=== PATIENT | male | born 1960 | race Caucasian/White ===

== ENCOUNTER 2017-06-26 12:19 | Emergency (ER) | payer OTHER ==
[~2017-06-26] VITALS: Wt 110.7 kg
[~2017-06-26 12:19] MED LIST: CARB100T2 PO; HALO5TAB23 PO; SERT50TA PO
--- NOTE | 2017-06-26 13:37 | RADRPT ---
PROCEDURE: CT Brain without contrast. CLINICAL INDICATION: Trauma. Fall striking back of head. TECHNIQUE: A CT of the brain was performed on a [facility] [employer] CT scanner [employer] a low dose technique with axial imaging from the skull base through the vertex without IV contras t. Multiplanar reformatted images were made. Images were reviewed on a PACS workstation. The CTDI vol is 44.5 mGy and the DLP is 810.25 mGycm. One or more of the following dose reduction techniques were used: - Automated exposure control. - Adjustment of the mA and/or kV according to patient size. Use of iterative reconstruction technique. COMPARISON: CT scan of the brain February 21, 2016 12:38 p.m. FINDINGS: The fourth ventricle is normal in size. The third and lateral ventricles are normal in size and con figuration. The brain parenchyma is normal with no intracranial mass or hemorrhage identified. There is a scalp hematoma size and with a laceration adjacent to the convexity of the dorsal right pariet al bone. The visible portions of the globes and extraocular muscles are normal. The paranasal sinuses are cl ear. The mastoid air cells and internal auditory canals are normal. The bony calvarium is intact. IMPRESSION: 1. There is a scalp hematoma over the dorsal convexity of the right frontal bone. 2. No skull fracture or intracranial hemorrhage is identified. The overall appearance of the brain is unchanged compared to the prior CT scan of 02/21/2016. RPTAT:AAJJ Physician Antonio Date Time Electronically viewed and signed by Physician Antonio on 06/26/2017 13:36 TALON/
[2017-06-26 14:16] VITALS: BP 145/87; PULSE 72; RESP 18; TEMP 98.7
[2017-06-26] MEDS ORDERED: LAMO200T PO (14:20)
--- NOTE | 2017-06-26 14:24 | ERD ---
ER Documentation Chief Complaint Chief Complaint head to back of head, dizziness s/p possible sz; hx sz HPI This is a 56-year-old male with a long-standing seizure disorder history. The patient states he was in the shower and felt his typical preceding aura that he has before a seizure and then the next thing he knows he wakes up on his living room couch. The patient states he fell backwards in the shower hit the back of his head sustaining a laceration. Said he has no headache no neck pain no shoulder pain back pain extremity pain chest pain abdominal pain vomiting or dizziness. The patient takes carbamazepine and lamotrigine for seizures lamotrigine dose is 150 mg twice daily ROS All systems reviewed and are negative except as per history of present illness. Medications Home Meds Active Scripts Lamotrigine* (Lamotrigine*) 200 Mg Tablet, 200 MG PO BID, #60 TAB Prov:QUYNH CARLSON DO 06/26/17 Reported Medications Carbamazepine* (Carbamazepine*) 100 Mg Tab.chew, 200 MG PO QID, #60 TAB.CHEW 02/21/16 Haloperidol* (Haldol*) 5 Mg Tab, 5 MG PO DAILY, TAB 10/21/14 Sertraline Hcl* (Zoloft*) 50 Mg Tablet, 50 MG PO DAILY, TAB 10/21/14 Allergies Allergies: Coded Allergies: phenytoin (Verified Allergy, Unknown, RASH, 02/23/16) PMhx/Soc History of Surgery: No Anesthesia Reaction: No Hx Neurological Disorder: Yes (seizure on medications) Hx Respiratory Disorders: No Hx Cardiac Disorders: No Hx Psychiatric Problems: Yes (depression on medications) Hx Miscellaneous Medical Probl: No Hx Alcohol Use: No Hx Substance Use: No Hx Tobacco Use: No FmHx Family History: No coronary disease Physical Exam Vitals Vital Signs Date Time Temp Pulse Resp B/P Pulse Ox O2 Delivery O2 Flow Rate FiO2 06/26/17 14:16 98.7 72 18 145/87 96 Room Air 06/26/17 13:11 98.7 66 22 134/104 96 Room Air 06/26/17 12:23 98.7 72 20 167/83 96 Physical Exam Const: Well-developed, well-nourished Head: Right posterior scalp with laceration see laceration repair below , normocephalic Eyes: Normal Conjunctiva, PERRLA, EOMI, normal sclera, no nystagmus ENT: Normal External Ears, Nose and Mouth, moist mucus membranes. Neck: Full range of motion. No meningismus, no lymphadenopathy. Resp: Clear to auscultation bilaterally, no wheezing, rhonchi, rales Cardio: Regular rate and rhythm, no murmurs, S1 S2 present Abd: Soft, non tender x 4, non distended. Normal bowel sounds, no guarding or rebound, no pulsitile abdominal masses or bruits Skin: No petechiae or rashes, no ecchymosis , no maculopapular rash Back: No midline or flank tenderness Ext: No cyanosis, or edema, FROM x 4, normal inspection, neurovascularly intact x 4 Neur: Awake and alert, STR 5/5 x 4, sensation intact x 4, no focal findings, cerebellum intact Psych: Normal Mood and Affect Results 24 hrs Laboratory Tests Test 06/26/17 13:00 Carbamazepine (Tegretol) Level 11.4ug/ml Procedures/MDM PROCEDURE: CT Brain without contrast. CLINICAL INDICATION: Trauma. Fall striking back of head. TECHNIQUE: A CT of the brain was performed on a [employer] CT scanner utilizing a low dose technique with axial imaging from the skull base through the vertex without IV contrast. Multiplanar reformatted images were made. Images were reviewed on a PACS workstation. The CTDIvol is 44.5 mGy and the DLP is 810.25 mGycm. One or more of the following dose reduction techniques were used: - Automated exposure control. - Adjustment of the mA and/or kV according to patient size. Use of iterative reconstruction technique. COMPARISON: CT scan of the brain February 21, 2016 12:38 p.m. FINDINGS: The fourth ventricle is normal in size. The third and lateral ventricles are normal in size and configuration. The brain parenchyma is normal with no intracranial mass or hemorrhage identified. There is a scalp hematoma size and with a laceration adjacent to the convexity of the dorsal right parietal bone. The visible portions of the globes and extraocular muscles are normal. The paranasal sinuses are clear. The mastoid air cells and internal auditory canals are normal. The bony calvarium is intact. IMPRESSION: 1. There is a scalp hematoma over the dorsal convexity of the right frontal bone. 2. No skull fracture or intracranial hemorrhage is identified. The overall appearance of the brain is unchanged compared to the prior CT scan of 2015. RPTAT:AAJJ Physician Antonio Date Time Electronically viewed and signed by Chuck Taylor Physician on 06/26/2017 13:36 JM/ CC: QUYNH CARLSON DO Laceration Repair by me: Anesthesia: 1 Location: Scalp Tendon/Joint/Nerves: No injury Foreign body: None detected after copious irrigation and exploration Technique: Simple Interrupted mya 4 Complexity: No subcutaneous sutures/mucosal repair/ edge excision Post Closure Length: 6 cm Patient's bleeding was easily controlled in the department and there is no indication of anemia. No evidence of compartment syndrome, neurologic injury, vascular injury, open joint, tendon laceration, or foreign body. Patient is appropriate for outpatient follow up. 48 hour wound check. Scar minimization instructions given. We will increase lamotrigine to 200 twice daily from 150 Departure Diagnosis: Primary Impression: Seizure Additional Impression: Laceration of scalp Encounter type: initial encounter Qualified Code: S01.01XA - Laceration of scalp, initial encounter Condition: Stable Patient Instructions: Seizure, Recurrent [Adult], Laceration (Sure+Close) QUYNH CARLSON DO Jun 26, 2017 14:24
== END 2017-06-26 14:48 | disposition home or self-care (01) ==
LOC: E/R 12:19
DX: R56.9 Unspecified convulsions (principal); S01.01XA Laceration without foreign body of scalp, initial encounter; R40.2142 Coma scale, eyes open, spontaneous, at arrival to emergency department; R40.2252 Coma scale, best verbal response, oriented, at arrival to emergency department; R40.2362 Coma scale, best motor response, obeys commands, at arrival to emergency department; W01.198A Fall on same level from slipping, tripping and stumbling with subsequent striking against other object, initial encounter; Y92.9 Unspecified place or not applicable
CPT/HCPCS: 70450; 80156